=== PATIENT | male | born 1975 | race Caucasian/White ===

== ENCOUNTER → 2017-10-21 | Outpatient (CLI) | payer BC ==
[~2017-10-21] MED LIST: ACHD5005 PO; ALBU8.5H4 IH; ALPR.25T PO; ALPR1T PO; AMLO10TA4 PO; AMLO5TAB2 PO; ASPI325T32 PO; AZIT250T PO; AZIT250T12 PO; BSP10T PO; BSP5T PO; DCS100C PO; FLUT9.9S NSEACH; HCT25T PO; HYDR-2890 PO; HYDR-757 PO; HYDR50TA76 PO; IOHEXOL 350 MG/ML 100 ML (OMNIPAQUE 350) VIAL IV ONE; LISI1TAB PO; LISI1TAB10 PO; LISI20TA PO; LISI40TA PO; LORA-407 PO; MAG355OR17 PO; METO-395 PO; METO50TA15 PO; NS 250 ML (IVPB) BAG IV ONE; OMEP20CA12 PO; OXYC-12 PO; PANT20TA PO; PRD10T PO
--- NOTE | 2017-10-21 10:23 | Diagnostic Imaging Report ---
PROCEDURE: CT abdomen and pelvis with and without contrast. TECHNIQUE: Precontrast acquisitions were acquired through the abdomen and pelvis. Multiple contiguous axial images were obtained through the abdomen and pelvis after the administration of intravenous contrast. INDICATION: Low back pain, left upper abdominal pain under ribs. COMPARISON: CT from 03/07/2015. FINDINGS: There are small subpleural nodules in the right lower lobe, largest measuring 4 mm in size (image 5 series 3). The heart is normal in size. There is no pericardial effusion. There is decreased attenuation of the liver consistent with hepatic steatosis. No focal liver lesions are seen. The spleen is large, measuring 19.1 cm. No focal splenic lesions are seen. Small splenules are noted. The adrenal glands appear normal. The pancreas is normal. The kidneys are unremarkable. There is no hydronephrosis. The bowel loops are nondistended without evidence of obstruction. There is diverticulosis of the descending and sigmoid colon without diverticulitis. The appendix is normal. No free fluid or free air is seen. There are mild degenerative changes in the lumbar spine. There is internal fixation of the left sacroiliac joint, the pubic symphysis, the right acetabulum, and a right hip arthroplasty. No hardware complication is seen. The malleable plate fixating the pubic symphysis is discontinuous, similar to 2014. IMPRESSION: 1. Splenomegaly, similar to 2015, with no acute abnormality seen in the abdomen or pelvis. 2. Colonic diverticulosis without diverticulitis. 3. Hepatic steatosis. 4. Posttraumatic and postsurgical changes in the pelvis and right hip. Faxed to Penelope Palma APRN at 11:00 AM by santana. Dictated by: Dictated on workstation # [id number]
== END ==
LOC: RAD 08:27
PROVIDERS: ATTEND Nurse Practitioner Family
DX: R16.1 Splenomegaly, not elsewhere classified (principal); K57.30 Diverticulosis of large intestine without perforation or abscess without bleeding; K76.0 Fatty (change of) liver, not elsewhere classified; M54.5 Low back pain; Z98.890 Other specified postprocedural states
CPT/HCPCS: 74178

== ENCOUNTER 2020-11-06 12:34 | Emergency (ER) | payer BC ==
[~2020-11-06] VITALS: Ht 182.8 cm; Wt 115.0 kg
[~2020-11-06 12:34] MED LIST changes: +AMLO-250 PO; -AMLO5TAB2 PO; +HYDR-4226 PO; -HYDR-757 PO; -IOHEXOL 350 MG/ML 100 ML (OMNIPAQUE 350) VIAL IV ONE; -LISI1TAB10 PO; +LISI1TAB26 PO; -METO-395 PO; +MTP100TCR PO; -NS 250 ML (IVPB) BAG IV ONE; -OMEP20CA12 PO; +OMEP20CA18 PO
--- NOTE | 2020-11-06 13:26 | ED Chest Pain ---
General Chief Complaint: Chest Pain Stated Complaint: SOA/VISION CHANGE Nursing Triage Note: Pt ambulatory into ER with complaint of chest pain and some vision disturbances since last saturday. Pt states that he thinks he got over heated saturday at work and the symptoms haven't completely gone away. Pain is a squeezing like pain, and rates it today a 3/10. Pt states that it does improve with rubbing the site of pain. Pt states that he has been having periods of blurriness since saturday. Pt denies other symptoms. Source: patient Exam Limitations: no limitations History of Present Illness Date Seen by Provider: Nov 06, 2020 Time Seen by Provider: 13:05 Initial Comments Patient is a 45-year-old male who presents to the emergency department today with a chief complaint of substernal chest pain radiating into his neck. Patient believes that he got "overheated" at work on Saturday when his symptoms started. But ever since that time with minimal exertion walking less than 30 yards the patient gets terrible chest pain and shortness of breath. He denies any nausea with the pain but states that he has had sweats ever since Saturday. He describes it as squeezing and he has been rubbing on his chest to try and alleviate the pain. He states that he has had some vision changes over the course of the last 3 days where it looks like "a light bulb going off and on"; his states that he had a little bit of slurred speech on Saturday. He felt near syncopal he states. No fevers chills congestion or cough. He is Covid vaccinated x1 shot. He is waiting on his second . He has a positive family history for his father passing away of a heart attack in his 60s and his brother passing away of a heart attack in his 40s. Patient smokes a pack of cigarettes every 2 weeks, he also has hypertension. He is slightly overweight. All other review of systems reviewed and negative except as stated above. Timing/Duration: getting worse Severity/Quality: severe, aching Location: substernal Radiation: neck Activities at Onset: activity Prior CP/Workup: no prior chest pain, no prior cardiac workup Modifying Factors: worse with movement ASA po DIE CUTTER: No Associated Symptoms: diaphoresis Allergies and Home Medications Allergies Coded Allergies: NKANo Known Allergies (Verified Allergy, Unknown, 09/24/11) Home Medications Amlodipine Besylate 10 Mg Tablet, 10 MG PO DAILY Prescribed by: SHAVON VALENCIA on 03/09/15 120 Aspirin 325 Mg Tablet.dr, 325 MG PO DAILY Prescribed by: FAITH VOGEL on 03/10/15915 Azithromycin 250 Mg Tablet, 250 MG PO UD PRN for daily TAKE 2 TABLETS TODAY, THEN TAKE 1 TABLET DAILY FOR 4 MORE DAYS Prescribed by: FAITH VOGEL on 03/09/15925 Fluticasone Propionate 9.9 Ml Barnard.susp, 1 SPRAY NSEACH BID, (Reported) Hydrocodone/Acetaminophen 1 Each Tablet, 1 TAB PO QID PRN for PAIN, (Reported) Lisinopril/Hydrochlorothiazide 1 Each Tablet, 1 TAB PO DAILY, (Reported) Lorazepam 2 Mg Tablet, 2 MG PO BID Prescribed by: FAITH VOGEL on 03/10/15915 Metoprolol Succinate 100 Mg Tab.er.24h, 100 MG PO BID Prescribed by: FAITH VOGEL on 03/10/15915 Omeprazole 20 Mg Capsule.dr, 20 MG PO DAILY, (Reported) 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, 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 Prescribed by: FAITH VOGEL on 03/09/15 09 Patient Home Medication List Home Medication List Reviewed: Yes Review of Systems Review of Systems Constitutional: see HPI, diaphoresis EENTM: No Symptoms Reported Respiratory: Shortness of Air Cardiovascular: Chest Pain Gastrointestinal: No Symptoms Reported Genitourinary: No Symptoms Reported Musculoskeletal: no symptoms reported Skin: no symptoms reported Psychiatric/Neurological: Anxiety, Headache (Yesterday), Weakness (Generalized) All Other Systems Reviewed Negative Unless Noted: Yes Past Dhwbzms-Wufmpm-Bvagux Hx Patient Social History Tobacco Use?: Yes Tobacco type used: Cigarettes Smoking Status: Current Everyday Smoker Use of E-Cig and/or Vaping dev: No Substance use?: No Alcohol Use?: Yes Alcohol type: Beer Alcohol Frequency: Couple times a week Pt feels they are or have been: No Immunizations Up To Date Tetanus Booster (TDap): Unknown Influenza Vaccine Up-to-Date: No; Not Current First/Initial COVID19 Vaccinat: 10/21/20 COVID19 Vaccine Slate Splitting Supervisor: Donya Past Medical History Orthopedic Hypertension Reproductive Disorders: No Gastroesophageal Reflux Arthritis Anxiety, Depression Family Medical History Family history: Arthritis 03 FATHER Family history: Cardiovascular disease 03 FATHER Family history: Diabetes mellitus 03 FATHER Family history: Hypertension 03 FATHER Family history: Thyroid disorder 03 FATHER History of - respiratory disease 03 FATHER Myocardial infarction 03 FATHER No Family History of: Cancer Family history: Alzheimer's disease CAD Under 55 Years Old Physical Exam Vital Signs Vital Signs - First Documented 11/06/20 13:02 Temp 36.8 Pulse 83 Resp 20 B/P (MAP) 109/83 (92) Pulse Ox 98 O2 Delivery Room Air Capillary Refill : Less Than 3 Seconds Height, Weight, BMI Height: 6'1.00" Weight: 263lbs. 9.0oz. 119.064190rg; 34.00 BMI Method:Stated General Appearance: No Apparent Distress, WD/WN Neck: Normal Inspection Respiratory: Lungs Clear, Normal Breath Sounds, No Accessory Muscle Use, No Respiratory Distress Cardiovascular: Regular Rate, Rhythm Gastrointestinal: Non Tender, Soft Extremity: Normal Capillary Refill, Normal Inspection, Normal Range of Motion, Non Tender, No Calf Tenderness Neurologic/Psychiatric: Alert, Oriented x3, No Motor/Sensory Deficits, Normal Mood/Affect Skin: Normal Color, Warm/Dry Progress/Results/Core Measures Results/Orders Lab Results Laboratory Tests Test 11/06/20 12:57 Range/Units White Blood Count 5.3 4.3-11.0 10^3/uL Red Blood Count 4.02 L 4.30-5.52 10^6/uL Hemoglobin 13.4 13.3-17.7 g/dL Hematocrit 37 L 40-54 % Mean Corpuscular Volume 93 80-99 fL Mean Corpuscular Hemoglobin 33 25-34 pg Mean Corpuscular Hemoglobin Concent 36 32-36 g/dL Red Cell Distribution Width 12.0 10.0-14.5 % Platelet Count 149 130-400 10^3/uL Mean Platelet Volume 10.3 9.0-12.2 fL Immature Granulocyte % (Auto) 1 % Neutrophils (%) (Auto) 66 42-75 % Lymphocytes (%) (Auto) 17 12-44 % Monocytes (%) (Auto) 13 H 0-12 % Eosinophils (%) (Auto) 3 0-10 % Basophils (%) (Auto) 1 0-10 % Neutrophils # (Auto) 3.5 1.8-7.8 10^3/uL Lymphocytes # (Auto) 0.9 L 1.0-4.0 10^3/uL Monocytes # (Auto) 0.7 0.0-1.0 10^3/uL Eosinophils # (Auto) 0.2 0.0-0.3 10^3/uL Basophils # (Auto) 0.1 0.0-0.1 10^3/uL Immature Granulocyte # (Auto) 0.0 0.0-0.1 10^3/uL Sodium Level 133 L 135-145 MMOL/L Potassium Level 3.7 3.6-5.0 MMOL/L Chloride Level 89 L 98-107 MMOL/L Carbon Dioxide Level 28 21-32 MMOL/L Anion Gap 16 H 5-14 MMOL/L Blood Urea Nitrogen 31 H 7-18 MG/DL Creatinine 1.30 0.60-1.30 MG/DL Estimat Glomerular Filtration Rate 60 BUN/Creatinine Ratio 24 Glucose Level 102 70-105 MG/DL Calcium Level 8.6 8.5-10.1 MG/DL Total Creatine Kinase 217 H 30-200 U/L Creatine Kinase MB 2.5 <6.6 NG/ML Troponin I < 0.028 <0.028 NG/ML My Orders Orders - SOCORRO PRICE MD Ed Iv/Invasive Line Start (11/06/20 13:19) Cbc With Automated Diff (11/06/20 13:19) Basic Metabolic Panel (11/06/20 13:19) Creatine Kinase (11/06/20 13:19) Creatine Kinase Mb (11/06/20 13:19) Troponin I (11/06/20 13:19) Ekg Tracing (11/06/20 13:19) Chest 1 View, Ap/Pa Only (11/06/20 13:19) Aspirin Chewable Tablet (Baby Aspirin Ch (11/07/20 09:00) Aspirin Chewable Tablet (Baby Aspirin Ch (11/06/20 13:39) Medications Given in ED Current Medications Medications Dose Ordered Sig/Erik Route Start Time Stop Time Status Last Admin Dose Admin Aspirin 81 mg STK-MED ONCE .ROUTE 11/06/20 13:39 11/06/20 13:41 DC 11/06/20 13:48 81 MG Vital Signs/I&O 11/06/20 11/06/20 13:02 13:02 Temp 36.8 Pulse 83 Resp 20 B/P (MAP) 109/83 (92) Pulse Ox 98 O2 Delivery Room Air Blood Pressure Mean: 92 Progress Progress Note : Time: 14:48 Progress Note Patient has had no ongoing pain while here in the emergency department. I talked to him extensively about follow-up tomorrow with his primary care physician, Dr. Espinoza at [facility]. I recommended that the patient establish a visit to get scheduled for a cardiac stress test. I think that he is at fairly significant risk considering his hypertension history, smoking history, family history of his brother passing away at 47. His troponin is negative his chest x-ray is normal his electrolytes and CBC are normal. Vital signs are stable. EKG is reassuring and normal. I have told him a couple of different times that if his pain recurs and if he has shortness of breath nausea or sweating with the pain that he needs to come immediately back to the emergency department. He verbalizes understanding as does his who is at the bedside. They are comfortable with this plan of care all questions are sought and answered. Initial ECG Impression Date: Nov 06, 2020 Initial ECG Impression Time: 13:05 Initial ECG Rate: 80 Initial ECG Rhythm: Normal Sinus Initial ECG Intervals: Normal Initial ECG Impression: Normal Diagnostic Imaging Diagonstic Imaging: Xray Plain Films/CT/US/NM/MRI: chest Comments [facility] [place], [place] NAME: LESLY WILSON Ike [facility] REC#: [id number] PT STATUS: REG ER : 1975 PHYSICIAN: SOCORRO PRICE MD ADMIT DATE: 11/06/20/ER Draft Date of Exam:11/06/20 CHEST 1 VIEW, AP/PA ONLY INDICATION: Left sided chest pain and shortness of air. TIME OF EXAM: 1:50 PM Correlation is made with prior chest from 03/07/2015. Heart size normal. Lungs are clear. There are no infiltrates. There is no effusion or pneumothorax. IMPRESSION: No acute abnormality is detected. Dictated on workstation # [id number] Dict: 11/06/20 1401 Trans: 11/06/20 1403 CV [id number] Interpreted by: BRENDA HUGHES MD Electronically signed by: Counseling-Symptomatic: 3-10 Minutes Follow-up with PCP to: Discuss Further Options CP/AMI: Aspirin, ECG Departure Impression Primary Impression: Chest pain Qualified Codes: R07.9 - Chest pain, unspecified Disposition: 01 HOME, SELF-CARE Condition: Stable Departure-Patient Inst. Decision time for Depature: 14:49 Referrals: TONNY PATEL MD (PCP/Family) Primary Care Physician Patient Instructions: Chest Pain, Adult ED Add. Discharge Instructions: Quit smoking please. Continue your blood pressure medications and take a baby aspirin daily. Come back to the emergency room if you have any recurrence of your chest pain especially if you have nausea, sweating or shortness of breath with it. Call Dr. Patel's office tomorrow morning for a follow-up appointment this week to schedule a cardiac stress test. SOCORRO PRICE MD Nov 06, 2020 13:26
[2020-11-06] MEDS ORDERED: ASPIRIN 81 MG CHEW (CHILDREN'S ASA) ONE (13:39)
[2020-11-06 13:44] LABS: BASOPHILS # (AUTO) 0.1 10^3/uL (0.0-0.1); BASOPHILS % (AUTO) 1 % (0-10); EOSINOPHILS # (AUTO) 0.2 10^3/uL (0.0-0.3); EOSINOPHILS % (AUTO) 3 % (0-10); HEMATOCRIT 37 % (40-54); HEMOGLOBIN 13.4 g/dL (13.3-17.7); LYMPHOCYTES # (AUTO) 0.9 10^3/uL (1.0-4.0); LYMPHOCYTES % (AUTO) 17 % (12-44); MEAN CORPUSCULAR HEMOGLOBIN 33 pg (25-34); MEAN CORPUSCULAR HGB CONC 36 g/dL (32-36); MEAN CORPUSCULAR VOLUME 93 fL (80-99); MEAN PLATELET VOLUME 10.3 fL (9.0-12.2); MONOCYTES # (AUTO) 0.7 10^3/uL (0.0-1.0); MONOCYTES % (AUTO) 13 % (0-12); NEUTROPHILS # (AUTO) 3.5 10^3/uL (1.8-7.8); NEUTROPHILS % (AUTO) 66 % (42-75); PLATELET COUNT 149 10^3/uL (130-400); WHITE BLOOD COUNT 5.3 10^3/uL (4.3-11.0)
[2020-11-06 13:46] LABS: CHLORIDE 89 MMOL/L (98-107); POTASSIUM 3.7 MMOL/L (3.6-5.0); SODIUM 133 MMOL/L (135-145)
[2020-11-06 13:47] LABS: CALCIUM 8.6 MG/DL (8.5-10.1)
[2020-11-06 13:48] LABS: GLUCOSE 102 MG/DL (70-105)
[2020-11-06 13:49] LABS: CARBON DIOXIDE 28 MMOL/L (21-32)
[2020-11-06 13:52] LABS: GFR ESTIMATED 60
[2020-11-06 13:53] LABS: BUN/CREATININE RATIO 24
[2020-11-06 13:54] LABS: CREATINE KINASE 217 U/L (30-200)
[2020-11-06 14:00] LABS: CREATINE KINASE MB 2.5 NG/ML (<6.6)
--- NOTE | 2020-11-06 14:04 | Diagnostic Imaging Report ---
INDICATION: Left sided chest pain and shortness of air. TIME OF EXAM: 1:50 PM Correlation is made with prior chest from 03/07/2015. Heart size normal. Lungs are clear. There are no infiltrates. There is no effusion or pneumothorax. IMPRESSION: No acute abnormality is detected. Dictated by: Dictated on workstation # [id number]
[2020-11-06 16:55] VITALS: BP 112/71
[2020-11-07] MEDS ORDERED: ASPIRIN 81 MG CHEW (CHILDREN'S ASA) PO SCH (09:00)
== END 2020-11-06 15:04 | disposition home or self-care (01) ==
LOC: EDUNIT# 12:34 → ER 12:38
DX: R07.9 Chest pain, unspecified (principal); I10 Essential (primary) hypertension; K21.9 Gastro-esophageal reflux disease without esophagitis; F41.9 Anxiety disorder, unspecified; F17.210 Nicotine dependence, cigarettes, uncomplicated; Z79.82 Long term (current) use of aspirin; Z79.52 Long term (current) use of systemic steroids; Z79.899 Other long term (current) drug therapy
CPT/HCPCS: 36415; 71045; 80048; 82550; 82553; 84484; 85025; 93005

== ENCOUNTER → 2022-10-17 | Outpatient (CLI) | payer BC, OTHER ==
[~2022-10-17] MED LIST changes: -LISI1TAB26 PO; +LISI1TAB48 PO
--- NOTE | 2022-10-17 12:45 | Diagnostic Imaging Report ---
PROCEDURE: MRI lumbar spine. TECHNIQUE: Multiplanar, multisequence MRI of the lumbar spine was performed without contrast. INDICATION: Back pain. COMPARISON: None. FINDINGS: Postsurgical changes from prior left iliosacral fusion. Straightening of the lumbar lordosis. Mild retrolisthesis of L2-L3 and L3-L4. Moderate multilevel disc height loss and desiccation. No marrow patient process suggest malignancy. Multilevel vertebral body hemangioma. Degenerative endplate edema along the superior endplate of L4. Metallic artifact at L5-S1. Included views of the abdomen demonstrates no significant abnormality. The spinal cord and cauda equina have a normal appearance. T12-L1: Disc bulge. Mild facet arthropathy. Mild spinal canal narrowing. Mild right neural foraminal narrowing. No left neural foraminal narrowing. L1-L2: Disc bulge. Mild facet arthropathy. Mild spinal canal narrowing. No neural foraminal narrowing. L2-L3: Disc bulge. Mild facet arthropathy. Moderate spinal canal narrowing. Mild right neural foraminal narrowing. No left neural foraminal narrowing. L3-L4: Left lateral recess and left foraminal disc protrusion superimposed on disc bulge. Ligamentous. Mild facet arthropathy. Severe left lateral recess stenosis. Moderate to severe spinal canal stenosis Severe left and mild right neural foraminal narrowing. L4-L5: Disc bulge. Mild facet arthropathy. Moderate spinal canal stenosis and bilateral lateral recess stenosis. Mild bilateral neural foraminal narrowing. L5-S1: Disc bulge. Mild facet arthropathy. Mild spinal canal narrowing. Mild neural foraminal neural foraminal narrowing. IMPRESSION: Multilevel degenerative changes of the lumbar spine, worst at L3-L4. L3-L4: Left lateral recess and left foraminal disc protrusion superimposed on disc bulge. Ligamentous. Mild facet arthropathy. Severe left lateral recess stenosis. Moderate to severe spinal canal stenosis Severe left and mild right neural foraminal narrowing. Additional moderate multilevel degenerative changes described level by level above. Dictated by: Dictated on workstation # [id number]
== END ==
LOC: RAD 09:26
PROVIDERS: ATTEND Nurse Practitioner
DX: M47.26 Other spondylosis with radiculopathy, lumbar region (principal); M51.16 Intervertebral disc disorders with radiculopathy, lumbar region; M48.061 Spinal stenosis, lumbar region without neurogenic claudication; M51.17 Intervertebral disc disorders with radiculopathy, lumbosacral region; M48.07 Spinal stenosis, lumbosacral region; M47.27 Other spondylosis with radiculopathy, lumbosacral region; M51.15 Intervertebral disc disorders with radiculopathy, thoracolumbar region; M48.05 Spinal stenosis, thoracolumbar region; M47.25 Other spondylosis with radiculopathy, thoracolumbar region
CPT/HCPCS: 72148